=== PATIENT | male | born 1990 | race African-American/Black ===

== ENCOUNTER 2024-11-23 19:06 | Emergency (ER) | payer SELFPAY, OTHER ==
[~2024-11-23 19:06] MED LIST: Iopamidol-370 76% 500 ML MDV (1 ML CHARGE) ONE
[2024-11-23] MEDS ORDERED: Ketorolac Tromethamine 30 MG (1 mL) VIAL ONE (19:53)
[2024-11-23] MEDS ORDERED: Ondansetron PF 4 MG/2 ML Vial ONE (19:53)
[2024-11-23 20:29] LABS: #Basophils 0.08 10x3/uL (0.0-0.2); #Eosinophils 0.08 10x3/uL (0.0-0.7); #Monocytes 1.13 10x3/uL (0.11-0.59); #Neutrophils 8.20 10x3/uL (1.40-6.50); %Basophils 0.7 % (0.0-1.0); %Eosinophils 0.7 % (0.0-10.0); %Lymphocytes 14.9 % (21.0-51.0); %Monocytes 10.1 % (0.0-10.0); %Neutrophils 73.1 % (42.0-75.0); Hematocrit 32.1 % (42.0-52.0); Hemoglobin 10.0 g/dL (14.0-18.0); Mean Corpuscular Hemoglobin 17.3 pg (27.0-31.0); Mean Corpuscular Volume 55.5 fL (78.0-98.0); Platelet Count 319 10x3/uL (130-400); Red Blood Cell (RBC) Count 5.78 mill/uL (4.70-6.10); Reflex for Review?? YES; White Blood Cell (WBC) Count 11.22 10x3/uL (4.8-10.8)
[2024-11-23 20:32] LABS: ALT (SGPT) 7 U/L (Less than 45); AST (SGOT) 26 U/L (11-34); Albumin 4.4 g/dL (3.1-4.5); Alkaline Phosphatase 54 U/L (40-110); Anion Gap 12 mmol/L (10-20); BUN (Urea Nitrogen) 11 mg/dL (8.9-20.6); Bilirubin, Total 0.5 mg/dL (0.3-1.2); Calc. Creatinine Clearance 0 mL/min (70-130); Calcium 9.2 mg/dL (7.8-10.44); Carbon Dioxide 24 mmol/L (22-29); Chloride 106 mmol/L (98-107); Globulin 2.9 g/dL (2.4-3.5); Glucose 97 mg/dL (70-105); Lipase 19 U/L (8-78); Potassium 3.6 mmol/L (3.5-5.1); Sodium 138 mmol/L (136-145)
[2024-11-23 20:35] LABS: INR-International Normal Ratio 1.2; PTT 30.0 sec (22.9-36.1); Prothrombin Time 15.1 sec (12.0-14.7)
[2024-11-23 20:52] LABS: Microcytosis MODERATE=15-30 cells HPF (0-5); Platelet Adequacy Comment Platelets Normal; Poikilocytosis SLIGHT = 6-15 cells HPF (0-5); Polychromasia SLIGHT = 2-3 cells HPF (0-2); Schistocytes SLIGHT = 2-5 cells HPF (0-1); Target Cells MODERATE= 6-15 cells HPF (0-1)
== END 2024-11-23 21:57 | disposition home or self-care (01) ==
LOC: ERS 19:06
DX: M54.2 Cervicalgia (principal); M25.552 Pain in left hip; F17.290 Nicotine dependence, other tobacco product, uncomplicated; V69.9XXA Occupant (driver) (passenger) of heavy transport vehicle injured in unspecified traffic accident, initial encounter
CPT/HCPCS: 70450; 71045; 71260; 72125; 74177; 80053; 80307; 83690; 85025; 85060; 85610; 85730; 94760; 96374; 96375; J1885; J2405; Q9967